=== PATIENT | male | born 1970 ===

== ENCOUNTER 2021-04-12 08:50 | Outpatient (CLI) | payer OTHER ==
[~2021-04-12 08:50] MED LIST: ASA81 MG; BYSTOLIC10 MG; CLARINEX2.5 MG/5 M PO; LANTUS SOLOSTAR3 ML SQ; LANTUS100 U/ML; TOPROL XL25 MG PO; TRILIPIX135 MG; VALSARTAN-HCTZ1 EAC3; YANUMET; [UNRECOGNIZED DRUG - OTHER] PO
== END 2021-04-12 09:15 | disposition home or self-care (01) ==
LOC: PPH VACUNA 08:50
PROVIDERS: ATTEND Emergency Medicine Pediatric Emergency Medicine
DX: Z23 Encounter for immunization (principal)